=== PATIENT | male | born 1990 | race Caucasian/White ===

== ENCOUNTER → 2018-01-04 | Outpatient (CLI) | payer BC, OTHER ==
[~2018-01-04] MED LIST: DIPH,PERTUS(ACELL)TETVAC-LF 0.5 ML VIAL IM ONE
[2018-01-04 12:58] VITALS: BP 163/80; PULSE 55; RESP 16; TEMP 97.8
== END | disposition home or self-care (01) ==
LOC: PROCWHC3 12:43
PROVIDERS: ATTEND Family Medicine
DX: Z23 Encounter for immunization (principal)
CPT/HCPCS: 90471; 90715